=== PATIENT | male | born 1980 | race Caucasian/White ===

== ENCOUNTER → 2020-11-16 | Outpatient (CLI) | payer OTHER ==
--- NOTE | 2020-11-16 16:03 | KCIC ---
EXAM: 3 Views Right Shoulder DATE: 11/16/2020 3:00 PM INDICATION: Reason: Polyarthritis / Spl. Instructions: / History: COMPARISON: No Prior FINDINGS: There is no evidence for acute fracture or dislocation. AC joint is congruent. Humeral head is not hi gh riding. IMPRESSION: 1. No acute fracture or dislocation. Electronically signed by: Alex Serrano MD (11/16/2020 4:00 PM) [id number]
--- NOTE | 2020-11-17 17:36 | KCIC ---
XR KNEE 3 VIEWS Clinical Indication: Reason: Polyarthritis Comparison: None. Findings: Standing views. Right: No acute fracture. Mild medial compartment narrowing with small marginal osteophyte formation. No cecilia nt effusion. Patella in anatomic position. Mineralization is normal. No acute fracture. Mild medial compartment narrowing. Small marginal osteophytes. Patella in anatomic position. No joint effusion. Mineralization is normal. IMPRESSION: Mild arthropathy of the medial compartments of the knees. Electronically signed by: Sergio Islas MD (11/17/2020 5:33 PM) [id number]
--- NOTE | 2020-11-17 17:39 | KCIC ---
XR LUMBAR SPINE 4+V Clinical Indication: Reason: Chronic LBP Comparison: None. Findings: AP, and neutral, flexion, and extension lateral views. Standing views. Oblique views. 5 lumbar type vertebral bodies. Sacroiliac joints are symmetric. No pars defect on the oblique views is seen. The vertebral body height and alignment are maintained. There is mild endplate spurring and sclerosis. No significant disc space narrowing. The alignment does not change with flexion and extens ion. Mineralization is normal. No acute fracture. IMPRESSION: Vertebral body height and alignment are maintained. Electronically signed by: Sergio Islas MD (11/17/2020 5:36 PM) [id number]
--- NOTE | 2020-11-17 17:48 | KCIC ---
XR HAND 3 VIEWS 11/16/2020 3:00 PM INDICATION: Polyarthritis COMPARISON: None available. TECHNIQUE: 3 views of the left and 3 views of the right hand are provided. FINDINGS/ IMPRESSION: There is no acute fracture or dislocation. Joint spaces are maintained. Bone mineralization is within normal limits. Regional soft tissues are within normal limits. There is no soft tissue gas or osseou s erosion. No radiopaque foreign body. Electronically signed by: Shannan Caldwell MD (11/17/2020 5:45 PM) [id number]
== END ==
LOC: KCIC 14:40
PROVIDERS: ATTEND Family Medicine
DX: M17.0 Bilateral primary osteoarthritis of knee (principal); M25.762 Osteophyte, left knee; M25.761 Osteophyte, right knee; M25.511 Pain in right shoulder; M79.641 Pain in right hand; M79.642 Pain in left hand
CPT/HCPCS: 72114; 73030; 73130; 73562